=== PATIENT | female | born 1930 ===

== ENCOUNTER 2016-10-16 13:44 | Emergency (ER) | payer MEDICARE ==
[2016-10-16 14:46] LABS: BASOPHILS 0 % (0.0-2.0); EOSINOPHILS 0 % (0-7); HEMOGLOBIN 11.9 g/dL (12-16); IMMATURE GRANULOCYTES 0.3 % (0-5); LYMPHOCYTES 4.2 % (15-50); MCH 28.5 pg (26.0-34.0); MCHC 33.1 g/dL (31.0-37.0); MCV 86.3 fL (80.0-100.0); MEAN PLATELET VOLUME 11.4 fL (7.4-10.4); MONOCYTES 6.8 % (2-11); NEUTROPHILS 88.7 % (40-80); PLATELET COUNT 284 10x3/uL (130-400); RBC 4.17 10x6/uL (4.00-5.40); RDW 14.3 % (11.5-14.5)
[2016-10-16 15:03] LABS: ALBUMIN 2.2 g/dL (3.4-5.0); ALKALINE PHOSPHATASE 236 U/L (46-116); ALT (SGPT) 19 U/L (10-68); BILIRUBIN - TOTAL 1.27 mg/dL (0.2-1.3); CALC OSMOLALITY 280 mosm/kg (275-300); CALCIUM 8.9 mg/dL (8.5-10.1); CARBON DIOXIDE 29.2 mmol/L (21.0-32.0); CHLORIDE - SERUM 90 mmol/L (98-107); CREATININE - SERUM 0.9 mg/dL (0.6-1.3); GLUCOSE 382 mg/dL (74-106); POTASSIUM - SERUM 4.1 mmol/L (3.5-5.1); PROTEIN - SERUM 6.1 g/dL (6.4-8.2); SODIUM 131 mmol/L (136-145); UREA NITROGEN 19 mg/dL (7-18); eGFR NON AFRICAN AMERICAN 63 mL/min (90-120)
[2016-10-16 15:09] LABS: TROPONIN-I < 0.017 ng/mL (0.000-0.060)
[2016-10-16 15:56] LABS: APPEARANCE HAZY (CLEAR); BILIRUBIN 2+ (NEGATIVE); COLOR DK YELLOW (YELLOW); GLUCOSE 1000 mg/dL (NEGATIVE); KETONE MODERATE mg/dL (NEGATIVE); NITRITE NEGATIVE (NEGATIVE); PROTEIN TRACE mg/dL (NEGATIVE)
[2016-10-16 15:58] LABS: LEUKOCYTE ESTERASE 1+ (NEGATIVE)
[2016-10-16 15:59] LABS: BACTERIA MODERATE /hpf (NONE SEEN); GRANULAR CAST RARE /lpf (NONE SEEN); HYALINE CAST OCC /lpf (NONE SEEN); MUCUS >1+ /lpf (NONE SEEN); RED CELLS - URINE 0-5 /hpf (0-5); WHITE CELLS - URINE 25-50 /hpf (0-5); YEAST RARE /hpf (NONE SEEN)
== END 2016-10-16 17:28 | disposition home or self-care (01) ==
LOC: D.ER 13:44
PROVIDERS: Emergency Medicine; Physician Assistant Medical
DX: R06.00 Dyspnea, unspecified (principal); I48.91 Unspecified atrial fibrillation; N39.0 Urinary tract infection, site not specified; Z91.14 Patient's other noncompliance with medication regimen; L89.301 Pressure ulcer of unspecified buttock, stage 1